=== PATIENT | female | born 1980 | race African-American/Black ===

== ENCOUNTER 2022-05-29 20:35 | Emergency (ER) | payer OTHER ==
[~2022-05-29] VITALS: Ht 160 cm; Wt 68.0 kg
[2022-05-29 20:39] VITALS: BP 126/79
== END 2022-05-30 00:08 | disposition left against medical advice (07) ==
LOC: ER 20:35
DX: Z53.21 Procedure and treatment not carried out due to patient leaving prior to being seen by health care provider (principal)
CPT/HCPCS: 81025